=== PATIENT | female | born 1970 | race Caucasian/White ===

== ENCOUNTER → 2016-08-30 | Outpatient (CLI) | payer BC ==
[~2016-08-30] VITALS: Ht 180.3 cm; Wt 110.9 kg
[~2016-08-30] MED LIST: ALDACTONE 25MG25 M1 PO; EPA FISH OIL1000 MG PO; GLUCOPHAGE XR500 M1 PO; MINOCYCLIN100 MG/CAP PO; MULTIPLE VITAMI1 TAB PO; PAXIL 20MG20 MG PO; PAXIL20 MG PO; PAXIL40 MG PO; TOPAMAX 100MG100 M1 PO; TOPAMAX50 MG PO
[2016-08-30 16:08] VITALS: BP 120/63; PULSE 64
[2016-08-30 16:55] VITALS: BP 120/63; PULSE 64
== END ==
LOC: LIGHT 14:48
DX: E78.4 Other hyperlipidemia (principal); E66.09 Other obesity due to excess calories; Z68.34 Body mass index [BMI] 34.0-34.9, adult; E16.1 Other hypoglycemia; F32.89 Other specified depressive episodes

== ENCOUNTER → 2016-12-05 | Outpatient (CLI) | payer BC | LOC: MC.RAD 10:40 | DX: Z12.31 Encounter for screening mammogram for malignant neoplasm of breast (principal); Z80.3 Family history of malignant neoplasm of breast ==

== ENCOUNTER → 2017-01-31 | Outpatient (CLI) | payer BC ==
[~2017-01-31] VITALS: Ht 180.3 cm; Wt 110.0 kg
[2017-01-31 16:03] VITALS: PULSE 70
== END ==
LOC: LIGHT 11-29 09:22
DX: E78.5 Hyperlipidemia, unspecified (principal); E66.9 Obesity, unspecified; Z68.33 Body mass index [BMI] 33.0-33.9, adult; Z71.3 Dietary counseling and surveillance; E16.1 Other hypoglycemia; F32.89 Other specified depressive episodes

== ENCOUNTER → 2017-05-23 | Outpatient (CLI) | payer BC ==
[~2017-05-23] VITALS: Ht 180.3 cm; Wt 109.8 kg
[2017-05-23 15:49] VITALS: BP 112/76; PULSE 72
[2017-05-29 10:09] VITALS: BP 132/96; PULSE 72
== END ==
LOC: LIGHT 05-02 15:59
DX: E78.5 Hyperlipidemia, unspecified (principal); E66.9 Obesity, unspecified; Z68.34 Body mass index [BMI] 34.0-34.9, adult; Z71.3 Dietary counseling and surveillance; E16.1 Other hypoglycemia; F32.89 Other specified depressive episodes

== ENCOUNTER → 2017-10-26 | Outpatient (CLI) | payer BC ==
[~2017-10-26] VITALS: Ht 180.3 cm; Wt 110.9 kg
[~2017-10-26] MED LIST changes: +PHENTERMINE15 MG PO; +ZESTRIL 5MG5 MG PO
[2017-10-26 16:00] VITALS: BP 120/68; PULSE 72
== END ==
LOC: LIGHT 09-28 10:34
DX: E78.5 Hyperlipidemia, unspecified (principal); E66.9 Obesity, unspecified; Z68.34 Body mass index [BMI] 34.0-34.9, adult; Z71.3 Dietary counseling and surveillance; E16.1 Other hypoglycemia; F32.89 Other specified depressive episodes
CPT/HCPCS: G0463

== ENCOUNTER → 2017-12-07 | Outpatient (CLI) | payer BC ==
[~2017-12-07] VITALS: Ht 180.3 cm; Wt 109.8 kg
[2017-12-07 15:43] VITALS: BP 104/72; PULSE 76
== END ==
LOC: LIGHT 14:56
DX: E78.5 Hyperlipidemia, unspecified (principal); E66.9 Obesity, unspecified; Z68.33 Body mass index [BMI] 33.0-33.9, adult; Z71.3 Dietary counseling and surveillance; E16.1 Other hypoglycemia; F32.89 Other specified depressive episodes
CPT/HCPCS: G0463

== ENCOUNTER → 2017-12-11 | Outpatient (CLI) | payer BC | LOC: MC.RAD 14:06 | DX: Z12.31 Encounter for screening mammogram for malignant neoplasm of breast (principal) ==

== ENCOUNTER 2018-01-04 16:32 | Emergency (ER) | payer BC ==
[2018-01-04 16:42] VITALS: TEMP 98
[2018-01-04] MEDS ORDERED: GLUCOSAMIN 500 (17:18)
[2018-01-04 18:01] VITALS: BP 123/84; PULSE 72
== END 2018-01-04 18:02 | disposition home or self-care (01) ==
LOC: COL.ER 16:32
DX: H05.223 Edema of bilateral orbit (principal); T78.1XXA Other adverse food reactions, not elsewhere classified, initial encounter; Z79.84 Long term (current) use of oral hypoglycemic drugs
CPT/HCPCS: J1200; J2930; J7030

== ENCOUNTER → 2018-01-18 | Outpatient (CLI) | payer BC ==
[~2018-01-18] VITALS: Ht 180.3 cm; Wt 106.4 kg
[~2018-01-18] MED LIST changes: +GLUCOSAMIN 500
[2018-01-18 15:59] VITALS: BP 114/80; PULSE 68
== END ==
LOC: LIGHT 14:14
DX: E78.5 Hyperlipidemia, unspecified (principal); E66.9 Obesity, unspecified; Z68.32 Body mass index [BMI] 32.0-32.9, adult; Z71.3 Dietary counseling and surveillance; E16.1 Other hypoglycemia; F32.89 Other specified depressive episodes
CPT/HCPCS: G0463

== ENCOUNTER → 2018-02-14 | Outpatient (CLI) | payer BC | LOC: MC.RAD 12:53 | DX: N63.41 Unspecified lump in right breast, subareolar (principal); N63.12 Unspecified lump in the right breast, upper inner quadrant; Z80.3 Family history of malignant neoplasm of breast ==

== ENCOUNTER 2018-03-06 07:17 | Day surgery (SDC) | payer BC ==
[2018-03-06] VITALS (7 sets, daily range): BP systolic 127–142; BP diastolic 82–87; PULSE 72–92; TEMP 97.8–98
[~2018-03-06] VITALS: Ht 180.3 cm; Wt 102.3 kg
[~2018-03-06 07:17] MED LIST changes: -GLUCOSAMIN 500; +GLUCOSAMIN 500 PO; +MULTIPLE VITAMI1 TA5 PO; -MULTIPLE VITAMI1 TAB PO; -PAXIL 20MG20 MG PO
[2018-03-06] MEDS ORDERED: B-12 500 MCG PO (08:30)
[2018-03-06] MEDS ORDERED: DOXYCYCLINE 10100 MG PO (08:31)
== END 2018-03-06 17:45 | disposition home or self-care (01) ==
LOC: SDCO 07:17
DX: C50.111 Malignant neoplasm of central portion of right female breast (principal); Z17.0 Estrogen receptor positive status [ER+]; I10 Essential (primary) hypertension; R73.03 Prediabetes; F41.9 Anxiety disorder, unspecified; Z80.3 Family history of malignant neoplasm of breast; Z87.891 Personal history of nicotine dependence
CPT/HCPCS: A9541; J0690; J1100; J1885; J2250; J2405; J2704; J2795; J3010; J7030

== ENCOUNTER → 2018-03-20 | Outpatient (CLI) | payer BC ==
[~2018-03-20] MED LIST changes: +B-12 500 MCG PO; +DOXYCYCLINE 10100 MG PO
== END ==
LOC: COL.RAD 11:05
DX: C50.911 Malignant neoplasm of unspecified site of right female breast (principal); Z98.890 Other specified postprocedural states
CPT/HCPCS: Q9967

== ENCOUNTER 2018-04-12 18:21 | Emergency (ER) | payer BC ==
[~2018-04-12] VITALS: Ht 180.3 cm; Wt 100.0 kg
[2018-04-12 19:42] LABS: BASO % 0.1 % (0.0-2.0); GRAN # 8.1 (1.4-6.5); HEMOGLOBIN 12.6 g/dl (12.5-16.0); LYMPH # 0.5 (1.2-3.4); LYMPH % 5.8 % (20.0-51.0); MEAN CELL VOLUME 84 fl (80.0-100.0); MEAN CORPUSCULAR HEMOGLOBIN 30 pg (27.0-31.0); MEAN CORPUSCULAR HGB CONC 36 g/dl (33.0-37.0); MEAN PLATELET VOLUME 9.1 fl (7.4-10.4); MONO # 0.1 (0.1-0.6); MONO % 1.5 % (1.7-9.3); PLATELET COUNT 254 K/mm3 (130-400); RED BLOOD COUNT 4.23 M/mm3 (4.10-5.30); REDCELL DISTRIBUTION WIDTH-CV 12.6 % (11.5-14.5)
[2018-04-12 19:52] LABS: HEMATOCRIT 35.5 % (37.0-47.0)
[2018-04-12 19:53] LABS: ALANINE AMINOTRANSFERASE 30 U/L (9-52); ALKALINE PHOSPHATASE 55 U/L (50-136); ANION GAP 13 mmol/L (7-16); AST,SGOT 25 U/L (15-37); BILIRUBIN,TOTAL 0.7 mg/dL (0.0-1.0); BLOOD UREA NITROGEN 6 mg/dL (7-17); CALCIUM 7.8 mg/dL (8.4-10.2); CARBON DIOXIDE 19 mmol/L (22-30); CREATININE, serum 0.47 mg/dL (0.52-1.25); GLUCOSE 123 mg/dL (74-106); POTASSIUM 3.3 mmol/L (3.4-5.0); TOTAL PROTEIN 6.9 gm/dL (6.4-8.2)
[2018-04-12 19:54] LABS: C-REACTIVE PROTEIN < 0.5 mg/dL (0.0-0.9); CHLORIDE 84 mmol/L (98-107); SODIUM 115 mmol/L (137-145)
[2018-04-12 20:27] LABS: CALCIUM 7.6 mg/dL (8.4-10.2); CREATININE, serum 0.42 mg/dL (0.52-1.25); POTASSIUM 3.3 mmol/L (3.4-5.0)
[2018-04-12 21:22] LABS: BASO % 0.2 % (0.0-2.0); EOS % 0.1 % (0-4.0); GRAN # 11.1 (1.4-6.5); GRAN % 82.6 % (42.2-75.2); HEMATOCRIT 40.8 % (37.0-47.0); HEMOGLOBIN 13.5 g/dl (12.5-16.0); LYMPH # 1.8 (1.2-3.4); LYMPH % 13.3 % (20.0-51.0); MEAN CELL VOLUME 89 fl (80.0-100.0); MEAN CORPUSCULAR HEMOGLOBIN 29 pg (27.0-31.0); MEAN CORPUSCULAR HGB CONC 33 g/dl (33.0-37.0); MEAN PLATELET VOLUME 9.4 fl (7.4-10.4); MONO # 0.4 (0.1-0.6); MONO % 3.1 % (1.7-9.3); PLATELET COUNT 338 K/mm3 (130-400); REDCELL DISTRIBUTION WIDTH-CV 12.7 % (11.5-14.5)
[2018-04-12 21:31] LABS: ALBUMIN 4.3 gm/dL (3.5-5.0); BILIRUBIN,TOTAL 0.8 mg/dL (0.0-1.0); CALCIUM 7.9 mg/dL (8.4-10.2); CREATININE, serum 0.51 mg/dL (0.52-1.25); TOTAL PROTEIN 7.4 gm/dL (6.4-8.2)
[2018-04-12 21:33] LABS: POTASSIUM 2.9 mmol/L (3.4-5.0)
[2018-04-12 22:19] VITALS: BP 117/71; PULSE 88
== END 2018-04-12 22:25 | disposition short-term general hospital (02) ==
LOC: COL.ER 18:21 → MEDICAL 20:34 → COL.ER 22:25
PROVIDERS: Family Medicine
DX: E86.0 Dehydration (principal); E87.1 Hypo-osmolality and hyponatremia; C50.919 Malignant neoplasm of unspecified site of unspecified female breast; C79.9 Secondary malignant neoplasm of unspecified site; F41.9 Anxiety disorder, unspecified; Z90.11 Acquired absence of right breast and nipple
CPT/HCPCS: J2060; J2550; J2765; J7030; J7131; Q2009

== ENCOUNTER 2018-04-25 08:46 | Outpatient (RCR) | payer BC | END 2018-07-24 | disposition home or self-care (01) | LOC: MKS.ESL.PT | DX: I89.0 Lymphedema, not elsewhere classified (principal); Z85.3 Personal history of malignant neoplasm of breast; Z92.21 Personal history of antineoplastic chemotherapy; Z80.3 Family history of malignant neoplasm of breast; Z90.11 Acquired absence of right breast and nipple ==

== ENCOUNTER → 2018-12-13 | Outpatient (CLI) | payer BC | LOC: MC.RAD 16:00 | DX: C50.011 Malignant neoplasm of nipple and areola, right female breast (principal); I10 Essential (primary) hypertension ==

== ENCOUNTER → 2019-02-25 | Outpatient (CLI) | payer BC | LOC: MC.RAD 02-18 13:00 | DX: Z08 Encounter for follow-up examination after completed treatment for malignant neoplasm (principal); N60.31 Fibrosclerosis of right breast; I10 Essential (primary) hypertension; N64.89 Other specified disorders of breast; Z85.3 Personal history of malignant neoplasm of breast; Z98.890 Other specified postprocedural states; Z92.3 Personal history of irradiation | CPT/HCPCS: G0279 ==

== ENCOUNTER → 2019-10-07 | Outpatient (CLI) | payer BC | LOC: COL.RAD 06:43 | DX: K82.4 Cholesterolosis of gallbladder (principal); K59.00 Constipation, unspecified | CPT/HCPCS: A9537; J2805 ==

== ENCOUNTER → 2020-01-03 | Outpatient (CLI) | payer BC | LOC: MC.RAD 14:10 | DX: Z12.31 Encounter for screening mammogram for malignant neoplasm of breast (principal); Z98.890 Other specified postprocedural states; Z98.82 Breast implant status; Z92.3 Personal history of irradiation ==

== ENCOUNTER → 2021-01-04 | Outpatient (CLI) | payer BC | LOC: MC.RAD 14:46 | DX: Z12.31 Encounter for screening mammogram for malignant neoplasm of breast (principal) ==

== ENCOUNTER → 2022-01-12 | Outpatient (CLI) | payer BC | LOC: MC.RAD 09:57 | DX: Z12.31 Encounter for screening mammogram for malignant neoplasm of breast (principal); Z85.3 Personal history of malignant neoplasm of breast ==

== ENCOUNTER → 2023-01-17 | Outpatient (CLI) | payer BC | LOC: MC.RAD 08:24 | DX: Z12.31 Encounter for screening mammogram for malignant neoplasm of breast (principal); Z85.3 Personal history of malignant neoplasm of breast ==

== ENCOUNTER → 2024-01-22 | Outpatient (CLI) | payer BC | LOC: MC.RAD 08:07 | DX: Z12.31 Encounter for screening mammogram for malignant neoplasm of breast (principal) ==